=== PATIENT | female | born 1950 | race Caucasian/White ===

== ENCOUNTER 2022-04-10 13:53 | Observation (INO) | payer MEDICARE ==
[~2022-04-10 13:53] MED LIST: Iopamidol-370 76% 500 ML 1 ML ONE
[2022-04-10 17:13] VITALS: BMI 25.9
[2022-04-10] MEDS ORDERED: Ondansetron PF 4 MG/2 ML Vial IVP PRN (17:18)
[2022-04-10] MEDS ORDERED: Acetaminophen 325 MG TAB PO PRN (17:18)
[2022-04-10] MEDS ORDERED: HumaLOG 300 UNITS/3 ML VIAL SC PRN (17:39)
[2022-04-10] MEDS ORDERED: Dextrose 50% Abboject 50 ML SYRINGE SLOW IVP PRN (17:39)
[2022-04-10] MEDS ORDERED: Dextrose 5% in Water 1,000 ML IV PRN (17:39)
[2022-04-10] MEDS ORDERED: Nitroglycerin 0.4 MG TAB (25 Tab Bottle) SL PRN (17:42)
[2022-04-10] MEDS: Sodium Chloride 0.9% 1,000 ML IV SCH (18:09)
[2022-04-10] MEDS ORDERED: Lidocaine 5% Patch TD SCH (21:00)
[2022-04-10] MEDS ORDERED: Mirtazapine 30 MG Soltab PO SCH (21:00)
[2022-04-11 05:35] LABS: #Basophils 0.1 thou/uL (0.0-0.2); #Eosinphils 0.3 thou/uL (0.0-0.7); #Lymphocytes 2.6 thou/uL (1.20-3.40); #Monocytes 0.6 thou/uL (0.11-0.59); #Neutrophils 3.4 thou/uL (1.40-6.50); %Basophils 0.9 % (0.0-1.0); %Eosinophils 4.1 % (0.0-10.0); %Lymphocytes 37.9 % (21.0-51.0); %Neutrophils 49.2 % (42.0-75.0); Hemoglobin 10.7 g/dL (12.0-16.0); Mean Corpuscular HGB CONC 33.8 g/dL (32.0-36.0); Mean Corpuscular Hemoglobin 31.6 pg (27.0-31.0); Mean Corpuscular Volume 93.6 fl (78.0-98.0); Mean Platelet Volume 8.1 fL (7.4-10.4); Platelet Count 236 10x3/uL (130-400); Red Blood Cell (RBC) Count 3.37 mill/uL (4.20-5.40); White Blood Cell (WBC) Count 6.9 10x3/uL (4.8-10.8)
[2022-04-11 05:51] LABS: Anion Gap 14 mmol/L (10-20); BUN (Urea Nitrogen) 23 mg/dL (9.8-20.1); Calc. Creatinine Clearance 55 mL/min (70-130); Calcium 9.2 mg/dL (7.8-10.44); Carbon Dioxide 24 mmol/L (23-31); Chloride 105 mmol/L (98-107); Estimated GFR 62; Glucose 81 mg/dL (80-115); Potassium 4.5 mmol/L (3.5-5.1); Sodium 138 mmol/L (136-145)
[2022-04-11] MEDS ORDERED: ADENOSINE 60 MG/20 ML VIAL ONE (08:55)
[2022-04-11] MEDS ORDERED: Transdermal Patch Removal TOP SCH (09:00)
[2022-04-11] MEDS ORDERED: Aspirin 325 MG TAB PO SCH (09:00)
[2022-04-11] MEDS ORDERED: FLU VACC QS2022-23(65YR UP)/PF 240 MCG/0.7 ML SYRINGE IM ONE (09:00)
[2022-04-11] MEDS ORDERED: FLUoxetine HCl 20 MG/5 ML UDCUP PO SCH (09:00)
[2022-04-11 15:31] VITALS: BP 128/71; TEMP 96.7
[2022-04-11] MEDS: Sodium Chloride 0.9% 1,000 ML IV SCH (18:16)
== END 2022-04-11 18:45 | disposition home health service (06) ==
LOC: NEURO 16:07 → INTOOBSV 17:18 → OBSVTOIN 17:18
PROVIDERS: ADMIT Family Medicine; ATTEND Family Medicine
DX: R07.89 Other chest pain (principal); I12.9 Hypertensive chronic kidney disease with stage 1 through stage 4 chronic kidney disease, or unspecified chronic kidney disease; E11.22 Type 2 diabetes mellitus with diabetic chronic kidney disease; N18.30 Chronic kidney disease, stage 3 unspecified; N17.9 Acute kidney failure, unspecified; I25.10 Atherosclerotic heart disease of native coronary artery without angina pectoris; R53.81 Other malaise; F03.90 Unspecified dementia, unspecified severity, without behavioral disturbance, psychotic disturbance, mood disturbance, and anxiety; G89.29 Other chronic pain; M54.9 Dorsalgia, unspecified; M19.90 Unspecified osteoarthritis, unspecified site; E78.5 Hyperlipidemia, unspecified; Z23 Encounter for immunization; Z79.82 Long term (current) use of aspirin; Z79.85 Long-term (current) use of injectable non-insulin antidiabetic drugs; Z79.899 Other long term (current) drug therapy; Z88.0 Allergy status to penicillin; Z88.1 Allergy status to other antibiotic agents; Z88.2 Allergy status to sulfonamides; Z88.5 Allergy status to narcotic agent; Z95.1 Presence of aortocoronary bypass graft; Z20.822 Contact with and (suspected) exposure to COVID-19
CPT/HCPCS: 71275; 78452; 80048; 82962 ×2; 84484 ×2; 85025; 90662; 93017; A9500; A9502; G0008; G0378; U0003; U0005; 36415; 36416; 90471; J0153; J1650; J7050; Q9967

== ENCOUNTER 2022-05-13 09:49 | Outpatient (CLI) | payer MEDICARE | END 2022-05-13 09:50 | disposition home or self-care (01) | LOC: RAD 09:49 | PROVIDERS: ATTEND Family Medicine | DX: R13.10 Dysphagia, unspecified (principal); R63.30 Feeding difficulties, unspecified | CPT/HCPCS: 74230 ==

== ENCOUNTER 2022-05-17 13:34 | Outpatient (CLI) | payer MEDICARE | END 2022-05-17 13:35 | disposition home or self-care (01) | LOC: ULT 13:34 | DX: E11.51 Type 2 diabetes mellitus with diabetic peripheral angiopathy without gangrene (principal); I70.201 Unspecified atherosclerosis of native arteries of extremities, right leg | CPT/HCPCS: 93923 ==